=== PATIENT | female | born 1950 | race Caucasian/White ===

== ENCOUNTER 2018-01-26 00:08 | Outpatient (CLI) | payer OTHER, SELFPAY ==
--- NOTE | 2018-01-26 08:42 | DI.MAMMO_ITS ---
SYMPTOM/DIAGNOSIS: SCREENING MAMMOGRAMS: Mammograms were interpreted according to the usual protocol including computer analysis with CAD system, tomosynthesis and C view imaging. Comparison with prior examinations. Breast density B. No masses or microcalcifications are seen. There is nothing to suggest malignancy. IMPRESSION: Negative mammogram. Routine screening is recommended. Category I. MQSA ASSESSMENT OF FINDINGS: Negative. Category 1. Patient will receive a letter notifying them of these results. BI-RADS category B. There are scattered areas of fibroglandular density.
== END 2018-01-26 00:28 ==
PROVIDERS: PCP Nurse Practitioner Primary Care; Visit Provider Nurse Practitioner Primary Care
DX: Z12.31 Encounter for screening mammogram for malignant neoplasm of breast (principal)
CPT/HCPCS: 77063; 77067

== ENCOUNTER 2019-08-10 09:49 | Emergency (ER) | payer OTHER, SELFPAY ==
[2019-08-10 09:50] VITALS: BP 119/62; PULSE 68; RESP 16; TEMP 37; O2SAT 95
--- NOTE | 2019-08-10 10:00 | DI.CT_ITS ---
EXAM: CT ABDOMEN PELVIS W CLINICAL HISTORY: GI bleed, N/V/D, RUQ abd pain TECHNIQUE: CT examination of the abdomen and pelvis was performed with bolus infusion of 100 cc of O mnipaque 350. COMPARISON: No exams were available for comparison FINDINGS: Images obtained through the lung bases show a well-circumscribed pleural-based 9 millimeter right lo wer lobe intrapulmonary nodule. There is also an incompletely visualized low-attenuation mass, appro ximately 15 Hounsfield units mean attenuation, seen adjacent to the esophagus in the posterior medias tinum measuring up to about 2 cm in diameter, this is possibly cystic in nature but should be evaluat ed with chest CT to visualize the entire lesion. There is a small hiatal hernia. There may be slight gastric wall thickening but this is indeterminat e with partially filled stomach. The liver and spleen are unremarkable in appearance as is the pancreas. There has been a prior lisa cystectomy. No biliary dilatation seen. Incidental right renal cyst noted measuring 3 cm in diameter. Multiple apparent smaller renal cysts seen bilaterally as well. No urinary tract obstruction or calcification. Unremarkable appearance of the adrenal glands. Abdominal aorta is of normal diameter and major visceral vessels appear intact. No abdominal or pelv ic adenopathy. Tiny fat containing left inguinal hernia noted. No other significant abdominal wall hernia seen. Appendix appears normal. No evidence of diverticulitis or bowel obstruction. There is wall thickening of the descending and proximal sigmoid colon suggesting colitis. Please cor relate clinically. IMPRESSION: Incidental 9 millimeter noncalcified right lower lobe intrapulmonary nodule, note is also made of inc ompletely visualized low-attenuation mediastinal mass which may represent a cyst, chest CT suggested to further evaluate these findings. Findings consistent with colitis involving descending and proximal sigmoid colon, colitis of uncertai n etiology. No evidence of obstruction.
--- NOTE | 2019-08-10 10:13 | ED.GENADUL_ITS ---
Discharge Plan Disposition Patient Disposition: HOME Condition: Stable Discharge Details Chief Complaint: GI Bleed Clinical Impression: Colitis with rectal bleeding Primary Care Provider: Jhoana Amador ED Provider: Susan Arguelles Home Meds and New Rx's Prescriptions: New pantoprazole [Protonix] 40 mg tablet,delayed release (DR/EC) 40 mg PO DAILY Qty: 14 RF: 0 ondansetron HCl [Zofran] 4 mg tablet 4 mg PO Q8H PRN (Reason: nausea and vomiting) Qty: 14 RF: 0 Continued multivitamin [Daily Multi-Vitamin] 1 EACH tablet 1 ea PO DAILY RF: 0 simvastatin 10 MG tablet 10 mg PO DAILY RF: 0 atenolol [Tenormin] 50 MG tablet 50 mg PO QHS RF: 0 omega-3 fatty acids-fish oil 1 EACH capsule 1 ea PO DAILY RF: 0 calcium carbonate-vitamin D3 [Calcium 500 + D] 1 EACH tablet 1 ea PO DAILY RF: 0 Discharge Instructions Instructions: Rectal Bleeding (ED), Colitis (ED) Additional Instructions: Please follow-up with primary care regarding possible chest CT. There are some incidental findings noted on the CT including a lung nodule and mediastienum mass that need further follow-up and evaluation. Take medications as pre scribed. Follow-up with surgery to schedule an outpatient colonoscopy. Return to the ED if any worsening bleeding worsening abdominal pain, blood in your emesis, feeling lightheaded dizzy or sweaty at any time. Follow up with primary care provider in 2-3 days. Return to ED sooner if any worsening or concerns. Increase oral fluids. Referrals: Jhoana Amador [Primary Care Provider] - Lucy Mariano DO [OSTEOPATHIC DOCTOR] - (Follow-up to schedule an outpatient scope for colitis and GI bleeding.) Medical Decision Making 69-year-old female presents with nausea vomiting diarrhea which patient reports is moderate to severe, intermittent which began yesterday associated with bright red blood from the rectum. She reports crampy abdominal pain. She denies any hematemesis or coffee-ground emesis. She denies any rectal pain. Exacerbating symptoms include oral intake no relieving factors. CBC and CMP are largely within normal limits. Rectal exam does not display any external hemorrhoids, was grossly bloody stool guaiac positive. Patient has had no further episodes of emesis or diarrhea since being in department. 1150: Spoke with radiologist Dr. Doan regarding CT abdomen pelvis he reports multiple findings including thickened bowel wall consistent with colitis, hiatal hernia, and a mass in the mediastinum which is poorly seen and a possible right lower lobe nodule which he recommends chest CT which can be done non-emergently as an outpatient. CT abdomen pelvis with contrast IMPRESSION: Incidental 9 millimeter noncalcified right lower lobe intrapulmonary nodule, note is also made of incompletely visualized low-attenuation mediastinal mass which may represent a cyst, chest CT suggested to further evaluate these findings. Findings consistent with colitis involving descending and proximal sigmoid colon, colitis of uncertain etiology. No evidence of obstruction. Dr. Mariano with surgery paged to discuss patient's case and recommendations for outpatient colonoscopy. Will have patient follow-up within 24-48 hours with surgery to schedule scope. At this time I feel it is safe for patient to be discharged home vitals are stable, patient states that she feels safe to go home and verbalizes red flags and strict return instructions. Discussed incidental findings on CT including possible lung nodule and mediastinal mass which need to be followed up with her primary care provider. HPI General Mode of arrival: ambulatory . Date/Time Provider Initiated Documentation: 08/10/19 09:50 . Limitations to Documentation: no limitations . Information obtained by: patient . HPI Narrative: 69-year-old female presents with nausea vomiting diarrhea which patient reports is moderate to severe, intermittent which began yesterday associated with bright red blood from the rectum. She reports crampy abdominal pain. She denies any hematemesis or coffee-ground emesis. She denies any rectal pain. Exacerbating symptoms include oral intake no relieving factors. Related Data Home Medications Medication Instructions Recorded Confirmed atenolol [Tenormin] 50 mg PO QHS 10/15/12 08/10/19 calcium carbonate-vitamin D3 1 ea PO DAILY 10/15/12 08/10/19 [Calcium 500 + D] multivitamin [Daily Multi-Vitamin] 1 ea PO DAILY 10/15/12 08/10/19 omega-3 fatty acids-fish oil 1 ea PO DAILY 10/15/12 08/10/19 simvastatin 10 mg PO DAILY tab-cap 10/15/12 08/10/19 ondansetron HCl [Zofran] 4 mg PO Q8H PRN #14 tab 08/10/19 pantoprazole [Protonix] 40 mg PO DAILY #14 tab 08/10/19 Previous Rx's Medication Instructions Recorded ondansetron HCl [Zofran] 4 mg PO Q8H PRN #14 tab 08/10/19 pantoprazole [Protonix] 40 mg PO DAILY #14 tab 08/10/19 Allergies Allergy/AdvReac Type Severity Reaction Status Date / Time No Known Drug Allergies Allergy Unverified 08/10/19 10:00 General Stated Complaint: GI Bleed ERICK: 2 Review of Systems Narrative: Constitutional: Negative for weight loss, alert and oriented, well groomed, normal body habitus, appears comfortable. HEENT: Denies trauma, headaches, blurry vision, nasal discharge, sore throat, trouble swallowing. Chest: Denies chest pain, palpitations, irregular rhythm, hypertension. Respiratory: Denies Shortness of breath, cough, hemoptysis. GI: Denies constipation. Positive nausea vomiting and diarrhea positive hematochezia. : Denies dysuria, hematuria, flank pain, positive rectal bleeding. Neuro: Denies blurry vision, weakness, syncope, headache or facial numbness. Had an episode of dizziness yesterday. Hematologic: Denies easy bruising, intolerance to heat or cold, hair loss. All systems reviewed & are unremarkable except as noted in HPI and below PFSH Social History Smoking/Tobacco Use Status: Never Alcohol Intake: never Drug use: Never Substance use type: does not use Do you feel safe at home: Yes Do you feel safe in your relationship?: Yes Exam Narrative Exam Narrative: Constitutional: Alert and oriented x3. Appears stated age. Normal body habitus. Head: Normocephalic, no trauma. Eyes: Pupils PERRLA, Red reflex noted, EOM's intact. Eyelids symmetrical without lesions, discharge, or swelling. ENT: Bilateral TM's WNL, External ear normal to inspection, no mastoid TTP, swelling, or erythema, Nasal turbinates WNL, no nasal discharge. Normal dentition, Posterior pharynx WNL, no exudate. Chest: RRR, Normal S1, S2, distal pulses intact. Resp: Lungs clear to auscultation bilaterally, no wheezes, rales, or rhonchi. Abdomen: Hypoactive bowel sounds all 4 quadrants, soft nondistended nontender to palpation. : Rectal exam performed Carolina RN at bedside for witness. No hemorrhoids visualized, good rectal tone. Stools grossly positive for blood and guaiac positive. Musculoskeletal: Normal gait, 5/5 strength to all four extremities. Skin: No suspicious rashes or lesions. Capillary refill less than 2 sec. Neurologic: Cranial nerves II-XII intact. Alert and oriented x 3. DTR's intact. Hematologic/Lymphatic: No ecchymosis, no lymphadenopathy. Course Vital Signs Vital signs: Vital Signs Temperature 37 C 08/10/19 09:50 Pulse 68 08/10/19 09:50 Respiratory Rate 16 08/10/19 09:50 Blood Pressure 119/62 08/10/19 09:50 Pulse Oximetry 95 08/10/19 09:50 Temperature 37 C 08/10/19 09:50 Temperature Source Skin 08/10/19 09:50 Pulse 68 08/10/19 09:50 Respiratory Rate 16 08/10/19 09:50 Respiratory Effort 08/10/19 10:03 Blood Pressure 119/62 08/10/19 09:50 Blood Pressure Position Sitting 08/10/19 09:50 Pulse Oximetry 95 08/10/19 09:50 Oxygen Delivery Method Room Air 08/10/19 09:50 Oxygen Flow Rate 0 08/10/19 09:50 Pain Level 5 08/10/19 09:50 Procedures Stool Hemoccult Procedural Steps Taken: stool placed in appropriate test area, developer placed on stool and control areas and controls appropriately positive and negative Hemoccult result: positive
[2019-08-10] MEDS: Pantoprazole 40 MG VIAL IVP (10:29)
[2019-08-10] MEDS: Ondansetron 4 MG/2 ML VIAL IVP (10:29)
[2019-08-10] MEDS: Normal Saline Flush 10 ML SYR IVP (10:30)
[2019-08-10 10:35] LABS: Abs Immature Grans 0.01 k/cumm (0.0-0.09); Absolute Basophil Count 0.02 k/cumm (0.0-0.2); Absolute Eosinophil Count 0.07 k/cumm (0.0-0.7); Absolute Lymphocyte Count 1.66 k/cumm (1.2-3.4); Absolute Monocyte Count 0.49 k/cumm (0.11-0.7); Absolute Neutrophil Count 3.16 k/cumm (1.2-6.7); Basophils % 0.4; Eosinophils % 1.3; HCT 40.1 % (36.0-46.0); HGB 13.7 g/dL (12.0-15.5); Immature Grans % 0.2 %; Lymphocytes % 30.7; Mean Corp. HGB Concentration 34.2 g/dL (32.0-36.0); Mean Corpuscular Hemoglobin 30.6 pg (27.0-33.0); Mean Corpuscular Volume 89.7 fL (80-95); Mean Platelet Volume 9.4 fL (8.0-11.0); Monocytes % 9.1; Neutrophils % 58.3; Platelet Count 302 x1000/uL (130-400); RBC 4.47 m/cumm (4.00-5.20); RBC Distribution Width 12.2 % (11.7-14.6); White Blood Cell Count 5.41 k/cumm (4.4-10.8)
[2019-08-10] MEDS: Normal Saline 1,000 ML 1000 ML IV (10:39)
[2019-08-10 10:41] LABS: Prothrombin Time 10.1 sec (9.3-11.0)
[2019-08-10 10:43] LABS: ALT 27 U/L (14-59); AST 23 U/L (15-37); Alkaline Phosphatase 76 U/L (46-116); Anion Gap 9.3 mmol/L (3-11); BUN 16 mg/dL (7-18); CO2 24.7 mmol/L (21.0-32.0); CREATININE 0.92 mg/dL (0.55-1.02); Calcium 9.1 mg/dL (8.5-10.1); Chloride 104 mmol/L (98-107); Glucose 108 mg/dL (74-106); Magnesium 1.8 mg/dL (1.8-2.4); Potassium 3.9 mmol/L (3.5-5.1); Sodium 138 mmol/L (136-145); Total Protein 7.6 g/dL (6.4-8.2)
[2019-08-10 10:44] LABS: Bilirubin, Total 0.6 mg/dL (0.2-1.0)
[2019-08-10 11:15] VITALS: BP 111/56; PULSE 56; TEMP 36.7; O2SAT 99
[2019-08-10] MEDS: Omnipaque 350 MG/ML 100 ML BTL IJ (11:21)
[2019-08-10] MEDS: Normal Saline - Diluent 50 ML VIAL IV (11:22)
[2019-08-10 12:38] VITALS: BP 114/65; PULSE 70; RESP 16; TEMP 37; O2SAT 96
--- NOTE | 2019-08-10 12:44 | NUR.NOTE ---
Nursing Note: FAXED REFERRAL TO SURGERY AND PCP
[2019-08-10 13:37] LABS: C-Reactive Protein 0.66 mg/dL (0.0-0.3)
== END 2019-08-10 13:10 | disposition home or self-care (01) ==
PROVIDERS: Surgery; Emergency Provider Registered Nurse Emergency; PCP Nurse Practitioner Primary Care
DX: K51.511 Left sided colitis with rectal bleeding (principal); R91.1 Solitary pulmonary nodule; R91.8 Other nonspecific abnormal finding of lung field; R11.2 Nausea with vomiting, unspecified
CPT/HCPCS: 36415; 80053; 86850; 86900; 86901; 96361; 96374; 96375; 99285; 74177; 83735; 83993; 85025; 85610; 86140; 99284; J2405; J3490

== ENCOUNTER 2019-08-11 12:35 | Outpatient (REF) | payer OTHER, SELFPAY ==
[2019-08-12 11:58] LABS: Campylobacter PCR Negative (Negative); Salmonella PCR Negative (Negative); Shiga Toxin PCR Negative (Negative); Shigella/Enteroinvasive Ecoli Negative (Negative)
[2019-08-15 14:48] LABS: Calprotectin 252 mcg/g
== END 2019-08-11 12:55 ==
LOC: LBN 12:35
PROVIDERS: PCP Nurse Practitioner Primary Care; Referring Provider Surgery; Visit Provider Registered Nurse Emergency
DX: R19.7 Diarrhea, unspecified (principal); K92.1 Melena
CPT/HCPCS: 87505; 83630; 83993

== ENCOUNTER 2019-08-15 01:10 | Outpatient (CLI) | payer OTHER, SELFPAY ==
--- NOTE | 2019-08-15 | DI.CT_ITS ---
EXAM: CT CHEST W CLINICAL HISTORY: [id number],F/U ABNL CT SHOWING INCIDENTAL RLL LUNG NODULE ON ABD CT TECHNIQUE: Imaging Protocol: Axial computed tomography images with coronal and sagittal reformatted images were created and reviewed CONTRAST MATERIAL: Intravenous: Omnipaque 350 Contrast volume:70 mL. COMPARISON: CT CT ABDOMEN PELVIS W from 08/10/2019 FINDINGS: Tracheobronchial tree: Patent where visualized. Mediastinum and Fernanda: No dominant adenopathy or fluid collection. There is a 2.2 x 1.4 cm hypodense o void lesion in the posterior mediastinum inferiorly adjacent to the esophagus. It lies posterior and inferior to the left atrium. It appears consistent with fluid attenuation. Pulmonary parenchyma: There is scarring in the right upper lobe and left lingula. There is mild prom inence of the interstitium peripherally which may reflect chronic pulmonary fibrosis. There is a 1 c m noncalcified peripheral pleural based nodule in the right lower lobe. No other pulmonary nodules a re identified. No focal consolidating infiltrates are present. Pleura: No effusion or pneumothorax. Heart: The heart is not dilated. No coronary artery calcifications are seen. No significant pericardi al effusion. Aorta: Thoracic aorta non-dilated. Upper abdomen: Status post cholecystectomy. No biliary ductal dilatation. Lymph nodes: Within normal limits. Bones: Age appropriate degenerative changes. Chronic appearing changes in the right ribs. IMPRESSION: 1. 1 cm noncalcified pulmonary nodule in the right lower lobe. For high risk patients, months follow -up CT scan of the chest or PET-CT is recommended. 2. 2.2 x 1.4 cm ovoid, hypodense lesion in the posterior mediastinum. This may represent a benign le hitesh such as a cyst. A follow-up CT scan considered for re-evaluation and to document stability. PE T scan may also be considered for further evaluation. RADIATION DOSE DELIVERED: Total DLP DATA REPOSITORY: All CT scans at this facility are submitted to the National Radiology Data Registry (NRDR) Dose Index Registry (DIR) with the [employer] (ACR). RADIATION OPTIMIZATION: All CT scans at this facility use at least one of these dose optimization te chniques: automated exposure control; mA and/or kV adjustment per patient size (includes targeted exa ms where dose is matched to clinical indication); or iterative reconstruction.
[2019-08-15] MEDS: Omnipaque 350 MG/ML 100 ML BTL IV (08:59)
[2019-08-15] MEDS: Normal Saline - Diluent 50 ML VIAL IV (09:00)
== END 2019-08-15 01:30 ==
PROVIDERS: PCP Nurse Practitioner Primary Care; Visit Provider Nurse Practitioner Primary Care
DX: R91.1 Solitary pulmonary nodule (principal); J98.4 Other disorders of lung; J98.59 Other diseases of mediastinum, not elsewhere classified
CPT/HCPCS: 71260; J3490

== ENCOUNTER 2019-11-24 02:25 | Outpatient (CLI) | payer OTHER, SELFPAY ==
--- NOTE | 2019-11-24 | DI.MAMMO_ITS ---
EXAM: MAMMO SCREENING CLINICAL HISTORY: SCREENING,Z12.39,[id number] TECHNIQUE: Mammograms were interpreted according to the usual protocol including computer analysis w [employer] system, tomosynthesis and C-view imaging. COMPARISON: FINDINGS: The breasts are of moderate density with fairly symmetrical distribution of fibroglandular tissue. N o dominant mass or clumped microcalcification is identified in either breast. The current examinatio n is compared with previous examinations including December 2017 and there has been no gross interval change in appearance in comparison with prior studies. IMPRESSION: No specific evidence of malignancy at this time. Routine screening examinations are suggested at yea rly intervals in this age group according to the ACS ACR guidelines. BI-RADS Cat 1 - Negative Breast Density - Category B - Scattered areas of fibroglandular density
== END 2019-11-24 02:45 ==
PROVIDERS: PCP Nurse Practitioner Primary Care; Visit Provider Nurse Practitioner Primary Care
DX: Z12.31 Encounter for screening mammogram for malignant neoplasm of breast (principal)
CPT/HCPCS: 77063; 77067

== ENCOUNTER 2020-02-10 10:11 | Outpatient (CLI) | payer OTHER, SELFPAY ==
[2020-02-14 20:58] LABS: Patient Race White; SARS-CoV-2 RNA Undetected (Undetected); SARS-CoV-2 Specimen Source Nasal
== END 2020-02-10 10:31 ==
PROVIDERS: PCP Nurse Practitioner Primary Care; Visit Provider Nurse Practitioner Primary Care
DX: Z20.828 Contact with and (suspected) exposure to other viral communicable diseases (principal)
CPT/HCPCS: U0003

== ENCOUNTER 2020-07-30 14:51 | Emergency (ER) | payer OTHER, SELFPAY ==
[2020-07-30 15:06] VITALS: BP 128/67; PULSE 70; RESP 20; TEMP 36.6; O2SAT 95
--- NOTE | 2020-07-30 15:15 | DI.CT_ITS ---
Exam(s) CT HEAD WO EXAM: CT HEAD WO CLINICAL HISTORY: fall, [place], increased pressure , +LOC on 07/23. TECHNIQUE: Imaging Protocol: Axial computed tomography images with coronal and sagittal reformatted images were created and reviewed COMPARISON: No exams were available for comparison FINDINGS: Ventricles and Extra axial spaces: Normal in size and morphology for the patient's age. Hemorrhage: None. Cerebral parenchyma: No acute territorial infarct. Midline shift: None. Brainstem/Cerebellum: Normal. Calvarium: Normal. Visualized Paranasal sinuses/Mastoids: Clear. Soft Tissues: Unremarkable. IMPRESSION: 1. No acute intracranial process. 2. Results of this exam have been verbally communicated with provider. RADIATION DOSE DELIVERED: 733.35mGy.cm Total DLP DATA REPOSITORY: All CT scans at this facility are submitted to the National Radiology Data Registry (NRDR) Dose Index Registry (DIR) with the [employer] (ACR). RADIATION OPTIMIZATION: All CT scans at this facility use at least one of these dose optimization te chniques: automated exposure control; mA and/or kV adjustment per patient size (includes targeted exa ms where dose is matched to clinical indication); or iterative reconstruction.
--- NOTE | 2020-07-30 15:51 | ED.GENADUL_ITS ---
Discharge Plan Disposition Patient Disposition: HOME Condition: Good Discharge Details Clinical Impression: Head injury Primary Care Provider: Jhoana Amador ED Provider: Tara Darnell Home Meds and New Rx's Prescriptions: No Action multivitamin [Daily Multi-Vitamin] 1 EACH tablet 1 ea PO DAILY RF: 0 simvastatin 10 MG tablet 10 mg PO DAILY RF: 0 atenolol [Tenormin] 50 MG tablet 50 mg PO QHS RF: 0 omega-3 fatty acids-fish oil 1 EACH capsule 1 ea PO DAILY RF: 0 calcium carbonate-vitamin D3 [Calcium 500 + D] 1 EACH tablet 1 ea PO DAILY RF: 0 pantoprazole [Protonix] 40 mg tablet,delayed release (DR/EC) 40 mg PO DAILY Qty: 14 RF: 0 ondansetron HCl [Zofran] 4 mg tablet 4 mg PO Q8H PRN (Reason: nausea and vomiting) Qty: 14 RF: 0 Discharge Instructions Instructions: Concussion (ED), Head Injury (ED) Additional Instructions: Take Tylenol as needed for pain Follow-up with your primary care physician in 1 to 2 days for reevaluation I recommend decreasing activities where he may harm yourself, no climbing ladders, no riding her bike, low impact activities Should you have new or worsening complaints, please return to the emergency room Discharge Data Discharge Date/Time-TO BE ENTERED AT DEPARTURE: 07/30/20 16:20 Medical Decision Making No evidence of skull fracture, small abrasion noted to forehead, CT does not show evidence of subarachnoid hemorrhage or subdural hematoma, discussed likely concussion signs and symptoms and patient instructed to follow-up with primary care physician Ibuprofen and Tylenol for pain control Ambulatory with steady gait, alert and oriented throughout evaluation Recheck with primary care physician this week and return precautions discussed and patient states understanding Differential Diagnosis Differential Diagnosis: Subdural hematoma, subarachnoid hemorrhage, concussion, fx Medical Records Medical records reviewed: Yes I reviewed the patient's medical records. HPI General Mode of arrival: ambulatory . Date/Time Provider Initiated Documentation: 07/30/20 15:12 . Limitations to Documentation: no limitations . Information obtained by: patient . HPI Narrative: This 70-year-old female presents status post head injury. Patient states that she tripped on the 26, falling forward and hitting the left side of her head. She states since that time she has some pressure when she bends over or when she bends over she feels pressure and some slight pain. She denies any nausea or vomiting. She denies any vision change or neck pain. She denies any chest pain or shortness of breath. She denies any numbness or tingling. She denies history of coagulopathy. She denies any photophobia or phonophobia. She otherwise feels well today and actually drove to the emergency room. She denies any neck pain. Related Data Home Medications Medication Instructions Recorded Confirmed atenolol [Tenormin] 50 mg PO QHS 10/15/12 08/19/19 calcium carbonate-vitamin D3 1 ea PO DAILY 10/15/12 08/19/19 [Calcium 500 + D] multivitamin [Daily Multi-Vitamin] 1 ea PO DAILY 10/15/12 08/19/19 omega-3 fatty acids-fish oil 1 ea PO DAILY 10/15/12 08/19/19 simvastatin 10 mg PO DAILY tab-cap 10/15/12 08/19/19 ondansetron HCl [Zofran] 4 mg PO Q8H PRN #14 tab 08/10/19 08/19/19 pantoprazole [Protonix] 40 mg PO DAILY #14 tab 08/10/19 08/19/19 Previous Rx's Medication Instructions Recorded ondansetron HCl [Zofran] 4 mg PO Q8H PRN #14 tab 08/10/19 pantoprazole [Protonix] 40 mg PO DAILY #14 tab 08/10/19 Allergies Allergy/AdvReac Type Severity Reaction Status Date / Time No Known Drug Allergies Allergy Unverified 07/30/20 15:10 General Stated Complaint: HeadInjury ERICK: 3 Review of Systems Narrative: Review of systems negative x7 aside from where indicated in HPI [facility] Medical History (Updated 07/30/20 @ 15:53 by RAUL Betancourt) Adenomatous colon polyp Nausea Pulmonary nodule not amendable to Bx PET recommeneded. Social History Smoking/Tobacco Use Status: Never Smoking risk assessment performed?: Yes Alcohol Intake: never Drug use: Never Substance use type: does not use Current gender identity: female Do you feel safe at home: Yes Do you feel safe in your relationship?: Yes Exam Const General: cooperative, healthy appearing and no acute distress Eyes Pupils: PERRL EOM: EOM intact bilaterally Neck Other: No carotid bruit, no midline tenderness Resp Effort & Inspection: normal respiratory effort Auscultation: clear to auscultation bilaterally Cardio Rate: regular rate Rhythm: regular rhythm GI Other: Nontender abdominal evaluation Skin Other: Small abrasion noted on forehead, no crepitus, only mild tenderness no hemotympanum Neuro General: patient alert and patient oriented x3 Cranial Nerves: CN's II-XI intact bilaterally and PERRL Speech: speech normal Gait: normal gait Motor: strength 5/5 throughout Sensory Exam: no sensory deficits noted Course Vital Signs Vital signs: Vital Signs Temperature 36.6 C 07/30/20 15:06 Pulse 70 07/30/20 15:06 Respiratory Rate 20 07/30/20 15:06 Blood Pressure 128/67 07/30/20 15:06 Pulse Oximetry 95 07/30/20 15:06 Temperature 36.6 C 07/30/20 15:06 Temperature Source Skin 07/30/20 15:06 Pulse 70 07/30/20 15:06 Respiratory Rate 20 07/30/20 15:06 Blood Pressure 128/67 07/30/20 15:06 Blood Pressure Position Sitting 07/30/20 15:06 Pulse Oximetry 95 07/30/20 15:06 Oxygen Delivery Method Room Air 07/30/20 15:06 Oxygen Flow Rate 0 07/30/20 15:06 Pain Level 8 07/30/20 15:06
== END 2020-07-30 16:20 | disposition home or self-care (01) ==
LOC: ER 15:59
PROVIDERS: Emergency Provider Physician Assistant; PCP Nurse Practitioner Primary Care
DX: S09.8XXA Other specified injuries of head, initial encounter (principal); W01.198A Fall on same level from slipping, tripping and stumbling with subsequent striking against other object, initial encounter
CPT/HCPCS: 99284; 70450; 99283

== ENCOUNTER 2021-02-28 14:43 | Emergency (ER) | payer OTHER, SELFPAY ==
[2021-02-28] VITALS (26 sets, daily range): BP systolic 117–136; BP diastolic 61–81; PULSE 69–80; RESP 14–73; TEMP 35.5; O2SAT 93–99
--- NOTE | 2021-02-28 14:45 | RT.EKG_ITS ---
APPROVED REPORT Exam: Resting ECG Reason for Exam: chest pain Patient Location: E HR:73 bpm ECG Measurements Heart Rate 73 AXIS MA 181 P 10 QRSd 104 QRS -50 QT 398 T 48 QTc 440 Conclusion Sinus rhythm...normal P axis, V-rate 60- 99 Incomplete RBBB and LAFB...axis(240,-40), S>R II III aVF. Sinus. Incomplete RBBB. No STEMI. I have reviewed and interpreted ECG and agree with software generated interpretation.
--- NOTE | 2021-02-28 14:58 | ED.GENADUL_ITS ---
Discharge Plan Disposition Patient Disposition: HOME Condition: Improving Discharge Details Clinical Impression: Left-sided chest wall pain Primary Care Provider: Jhoana Amador ED Provider: Helga Meredith Home Meds and New Rx's Prescriptions: Continued multivitamin [Daily Multi-Vitamin] 1 EACH tablet 1 ea PO DAILY RF: 0 simvastatin 10 MG tablet 20 mg PO DAILY RF: 0 calcium carbonate-vitamin D3 [Calcium 500 + D] 1 EACH tablet 1 ea PO DAILY RF: 0 propranolol 10 mg tablet 10 mg PO TID RF: 0 Discharge Instructions Instructions: Chest Wall Pain (ED) Additional Instructions: Drink plenty of fluids and get plenty of rest. Alternate tylenol and motrin as needed and directed for pain. Take the Valium that you were given for home every 8 hours as needed and directed for muscle spasm. You can try [id number] lidocaine patches as needed and directed for pain. Follow-up with your primary care doctor in 1 week for reevaluation and for refer ral for outpatient stress test if your chest pain persists or worsens. Also plan to discuss the additional findings on your CT scan today for referral for outpatient thyroid ultrasound and for repeat CT imaging of the stable findings noted in your lung and heart on CT imaging today. Return to the emergency department with any worsening or new concerning symptoms. Discharge Data Discharge Date/Time-TO BE ENTERED AT DEPARTURE: 02/28/21 19:25 Discharge Physician: Helga Meredith Medical Decision Making 71-year-old female with a history of hyperlipidemia presents for left-sided chest pain that occurs mainly with movement, deep breaths and to touch. EKG notes a rate of 73, sinus, no STEMI nondiagnostic. Her vitals are within normal limits and she appears comfortable and not. She had a normal respiratory rate. Her left medial chest wall including the area under her left breast is tender to palpation. There is no evidence of trauma, cellulitis or rash. Due to the reproducible nature, appears most likely consistent with chest wall/musculoskeletal pain. Considering her age, will obtain screening labs, CT chest with PE. History and presentation does not appear consistent with dissection. Labs and imaging reviewed and unremarkable for acute findings. No evidence of PE. There is a stable right lower lobe lung nodule and left atrium hypodensity seen in previous imaging and unchanged. There is also a potential right thyroid lobe hypodensity versus artifact. Repeat troponin negative. Repeat EKG unchanged. Patient reassessed and she is pain-free and feels comfortable going home. Heart score 3 which is low risk. Advised to follow-up with her PCP for reevaluation and referral for outpatient stress test and repeat CT imaging of stable pulmonary and cardiac CT findings and for outpatient thyroid ultrasound for further evaluation of above-mentioned CT findings. She was given a few tabs of valium to go per her request. Usual and customary return precautions given prior to discharge. Medical Records Medical records reviewed: Yes I reviewed the patient's medical records. Imaging Data Radiologic Study: Radiologist's impression: CTA Chest With Contrast Exam date and time: 02/28/2021 3:22 PM Age: 71 years old Clinical indication: Other: L sided chest pain, R/O pe TECHNIQUE: Imaging protocol: Computed tomographic angiography of the chest with contrast. 3D rendering (Not supervised by radiologist): MIP and/or 3D reconstructed images were created by the technologist. Contrast material: OMNIPAQUE 350; Contrast volume: 100 ml; Contrast route: INTRAVENOUS (IV); COMPARISON: CT CHEST W 08/15/2019 8:19 AM FINDINGS: Pulmonary arteries: Hounsfield attenuation of the right pulmonary artery measures 430 and therefore this study is diagnostic. No pulmonary emboli seen. Aorta: Unremarkable. Lungs: Mild heterogeneity is seen within the right upper lobe parenchyma, series 11 image 192 which may be artifactual. There is a subpleural 10 mm nodule within the posterior right lower lobe, series 4, image 45 previously measuring 10 mm. Stable scarring is seen within the right upper lobe and lingula. Bibasilar dependent atelectasis noted. Pleural spaces: No pleural effusion or pneumothorax. Mediastinum: There is a 10 mm hypodensity within the right thyroid lobe versus artifact from adjacent contrast-enhanced vessel. Heart size is upper limits of normal to minimally enlarged. No pericardial effusion or thickening. Esophagus is unremarkable. Again seen is a 19 x 16 mm hypodensity with Hounsfield attenuation of 30 adjacent to the left atrium, series 4, image 38. Lymph nodes: No mediastinal lymphadenopathy. Superior abdomen: Visualized portion of the liver, adrenal glands, kidneys, spleen, pancreas, moderately distended stomach with enteric content and bowel are unremarkable in appearance. No definite abdominal free air, significant free fluid or lymphadenopathy seen. Bones/joints: No acute osseous injury or underlying osseous mass. There is an old right 5th rib fracture. Soft tissues: Unremarkable. IMPRESSION: 1. No pulmonary emboli. 2. Stable subpleural 10 mm nodule within the right lower lobe which has shown stability since 08/10/2019 study. Recommend PET-CT or biopsy. 3. 10 mm right thyroid lobe hypodensity versus artifact. Recommend dedicated ultrasound. 4. Stable in size 19 x 16 mm hypodensity adjacent to the left atrium which is been stable since 08/10/2019 with Hounsfield attenuation consistent with simple fluid prior 2 studies. Current Hounsfield attenuation of 30 may represent minimally hemorrhagic/proteinaceous fluid. Recommend follow-up CT imaging in 3 months to include both with and without contrast. Lab Data Lab results reviewed: Yes I reviewed the patient's lab results. Labs: Laboratory Tests Range/Units 02/28/21 02/28/21 02/28/21 14:53 14:53 18:00 WBC (4.4-10.8) 10^3/uL 4.71 RBC (3.93-5.22) 10^6/uL 4.42 Hgb (11.2-15.7) g/dL 13.6 Hct (36.0-46.0) % 40.2 MCV (80-95) fL 91.0 MCH (27.0-33.0) pg 30.8 MCHC (32.0-36.0) % 33.8 RDW (11.7-14.6) % 11.9 Plt Count (130-400) 10^3/uL 254 MPV (8.0-11.0) fL 8.9 Immature Gran % 0.6 Neutrophils % 44.4 Lymphocytes % 39.7 Monocytes % 11.3 Eosinophils % 3.2 Basophils % 0.8 Nucleated RBC % % 0 Absolute Neutrophils (1.2-6.7) 10^3/uL 2.09 Absolute Lymphocytes (1.2-3.4) 10^3/uL 1.87 Absolute Monocytes (0.1-0.8) 10^3/uL 0.53 Absolute Eosinophils (0.0-0.7) 10^3/uL 0.15 Absolute Basophils (0.0-0.2) 10^3/uL 0.04 Sodium (136-145) mmol/L 140 Potassium (3.5-5.1) mmol/L 4.0 Chloride (98-107) mmol/L 104 Carbon Dioxide (21.0-32.0) mmol/L 29.0 Anion Gap (3-11) mmol/L 7.0 BUN (7-18) mg/dL 20 H Creatinine (0.55-1.02) mg/dL 0.9 Estimated GFR/1.73 m2 (mL/min/1.73m2) >= 60.00 Glucose (74-106) mg/dL 106 Calcium (8.5-10.1) mg/dL 9.3 Magnesium (1.8-2.4) mg/dL 2.2 Total Bilirubin (0.2-1.0) mg/dL 0.3 AST (15-37) U/L 21 ALT (14-59) U/L 30 Alkaline Phosphatase (46-116) U/L 68 Troponin I (<0.06) ng/mL < 0.05 < 0.05 Total Protein (6.4-8.2) g/dL 7.6 Albumin (3.4-5.0) g/dL 3.9 ECG Data Attestation: I personally reviewed and interpreted this ECG (s) as follows: Interpretation: #1 --Rate of 73, sinus, incomplete right bundle branch block and left anterior fascicular block. No STEMI. OR 181. QRS 103. QTc 440. #2 --Rate of 68, sinus, incomplete right bundle branch block and left anterior fascicular block. No STEMI. OR 184. QRS 104. QTc 443. HPI General Date/Time Provider Initiated Documentation: 02/28/21 14:50 . Limitations to Documentation: no limitations . Information obtained by: patient . HPI Narrative: Patient is a 71-year-old female who presents with left-sided chest pain that started yesterday. Patient states the pain is sharp and tight and located on her left medial chest and under her left breast. Patient states she awoke with the pain and states it is worse with movement, deep breath and to touch. She states the pain is currently 8/10. She denies any known injury. She has not taken any medication for pain. She denies fever, cough, nausea, vomiting, dizziness or shortness of breath. Related Data Home Medications Medication Instructions Recorded Confirmed calcium carbonate-vitamin D3 1 ea PO DAILY 10/15/12 02/28/21 [Calcium 500 + D] multivitamin [Daily Multi-Vitamin] 1 ea PO DAILY 10/15/12 02/28/21 simvastatin 20 mg PO DAILY tab-cap 10/15/12 02/28/21 propranolol 10 mg PO TID 02/28/21 02/28/21 Allergies Allergy/AdvReac Type Severity Reaction Status Date / Time No Known Drug Allergies Allergy Unverified 02/28/21 14:53 General Stated Complaint: Chest Pain ERICK: 2 Review of Systems All systems reviewed & are unremarkable except as noted in HPI and below Constitutional Constitutional: Reports as per HPI, Denies chills and Denies fever(s) Eyes Eyes: Denies blurry vision ENT Ears, Nose, Mouth, and Throat: Denies dizziness, Denies sore throat and Denies throat swelling Cardiovascular Cardiovascular: Reports chest pain and Denies dyspnea Respiratory Respiratory: Denies cough and Denies dyspnea Gastrointestinal Gastrointestinal: Denies abdominal pain, Denies diarrhea and Denies vomiting Genitourinary Genitourinary: Denies hematuria and Denies dysuria Musculoskeletal Musculoskeletal: Denies back pain and Denies numbness Integumentary/Breasts Skin/Breast: Denies lesions and Denies rash Neurologic Neurologic: Denies dizziness, Denies localized weakness and Denies numbness Allergic/Immunologic Allergic/Immunologic: Denies throat swelling [facility] Active Problem List (Updated 02/28/21 @ 19:12 by Helga Meredith DO) Left-sided chest wall pain (Acute) Head injury (Acute) Adenomatous colon polyp (Acute) Pulmonary nodule (Acute) Medical History (Updated 02/28/21 @ 19:12 by Helga Meredith DO) Hx of hyperlipidemia Nausea Surgical History (Updated 02/28/21 @ 19:12 by Helga Meredith DO) History of carpal tunnel release Right side History of hysterectomy History of knee surgery bilateral Social History Smoking/Tobacco Use Status: Never Smoking risk assessment performed?: Yes Alcohol Intake: never Drug use: Never Substance use type: does not use Current gender identity: female Do you feel safe at home: Yes Do you feel safe in your relationship?: Yes Exam Const General: cooperative, healthy appearing and no acute distress HENMT Head: normal to inspection Face and sinus: normal facial exam Eyes General: appearance normal, both eyes and all related structures EOM: EOM intact bilaterally Neck Neck: normal visual inspection and No submandibular swelling Lymphatic: no lymphadenopathy noted Chest Chest: normal inspection of the chest and no tenderness Chest/axillae images: 1. Localized area of tenderness to the left medial chest extending superiorly and under left breast. There is no erythema, edema, rash, lesions or open wounds. Resp Effort & Inspection: normal respiratory effort and able to speak in complete sentences Auscultation: clear to auscultation bilaterally Cardio Rate: regular rate Rhythm: regular rhythm GI Inspection: normal to inspection Palpation: soft, not firm, not rigid and nontender Auscultation: normal bowel sounds Back/Spine/Pelvis Thoracic/Lumbar Spine: thoracic and lumbar spine normal to inspection Pelvis: no pain with anterior-posterior compression Skin General skin exam: no rashes or lesions noted Neuro General: patient alert, patient awake and patient oriented x3 Cognition: normal cognition Speech: speech normal Motor: muscle tone normal throughout Sensory Exam: no sensory deficits noted Extrem General: normal to inspection, full ROM, capillary refill normal, no calf tenderness bilaterally and no edema Psych Appearance: grossly normal Mental Status: mental status grossly normal Speech and Movement: speech and movement normal Affect: normal affect Course Vital Signs Vital signs: Vital Signs Temperature 96 F L 02/28/21 14:49 Pulse 73 02/28/21 14:49 Respiratory Rate 73 H 02/28/21 14:49 Blood Pressure 136/69 02/28/21 14:49 Pulse Oximetry 95 02/28/21 14:49 Temperature 96 F L 02/28/21 14:49 Temperature Source Skin 02/28/21 14:49 Pulse 73 02/28/21 14:49 Respiratory Rate 73 H 02/28/21 14:49 Respiratory Effort Non-Labored 02/28/21 14:49 Blood Pressure 136/69 02/28/21 14:49 Blood Pressure Position Supine 02/28/21 14:49 Pulse Oximetry 95 02/28/21 14:49 Oxygen Delivery Method Room Air 02/28/21 14:49 Oxygen Flow Rate 0 02/28/21 14:49 Pain Level 0 02/28/21 14:49
[2021-02-28 15:10] LABS: Abs Immature Grans 0.03 10^3/uL (0.0-0.06); Absolute Basophil Count 0.04 10^3/uL (0.0-0.2); Absolute Eosinophil Count 0.15 10^3/uL (0.0-0.7); Absolute Lymphocyte Count 1.87 10^3/uL (1.2-3.4); Absolute Monocyte Count 0.53 10^3/uL (0.1-0.8); Absolute Neutrophil Count 2.09 10^3/uL (1.2-6.7); Basophils % 0.8; Eosinophils % 3.2; HCT 40.2 % (36.0-46.0); HGB 13.6 g/dL (11.2-15.7); Immature Grans % 0.6; Lymphocytes % 39.7; MCH 30.8 pg (27.0-33.0); MCHC 33.8 % (32.0-36.0); MPV 8.9 fL (8.0-11.0); Monocytes % 11.3; Neutrophils % 44.4; Nucleated RBC 0 %; Platelet Count 254 10^3/uL (130-400); RBC 4.42 10^6/uL (3.93-5.22); RDW 11.9 % (11.7-14.6); RDW-SD 39.8 fL; WBC 4.71 10^3/uL (4.4-10.8)
--- NOTE | 2021-02-28 15:15 | RT.EKG_ITS ---
APPROVED REPORT Exam: Resting ECG Reason for Exam: chest pain Patient Location: E HR:68 bpm ECG Measurements Heart Rate 68 AXIS PA 184 P -3 QRSd 104 QRS -46 QT 417 T 36 QTc 443 Conclusion Sinus rhythm...normal P axis, V-rate 60- 99 Incomplete RBBB and LAFB...axis(240,-40), S>R II III aVF. Sinus. No STEMI. I have reviewed and interpreted ECG and agree with software generated interpretation.
--- NOTE | 2021-02-28 15:15 | DI.CT_ITS ---
Exam(s) CT CHEST PE CTA EXAM: CT CHEST PE CTA CLINICAL HISTORY: L sided chest pain, r/o PE. TECHNIQUE: Imaging Protocol: CT angiography of the chest was performed using pulmonary embolus carlotta col. Multi planar reconstructions were performed. CONTRAST MATERIAL: Intravenous: Omnipaque 350 Contrast volume: 100 cc COMPARISON: CT CT CHEST W from 08/15/2019 FINDINGS: CHEST: PULMONARY ARTERIES: There are no intraluminal filling defects to suggest acute pulmonary emboli. LUNGS: There is a pleural base 9 x 7 millimeter nodule in the lateral basal segment of the right lowe r lobe, unchanged. There is some infiltrate evident in the posterior basal segments of both lower lo bes, not associated with pleural effusions. No additional pulmonary nodules noted. There are no sig nificant focal findings in the trachea and mainstem bronchi. Atelectasis in the lingular segment is again noted. No new focal findings in the trachea and mainstem bronchi.. There are no pleural effus ions. MEDIASTINUM: There is no hilar nor mediastinal adenopathy. There is a nodule in the right thyroid lob e again noted. CARDIAC: Heart size is upper normal. There is no pericardial effusion.Caliber of the thoracic aorta is within normal limits. There is no significant shift of the interventricular septum. PARTIALLY VISUALIZED UPPERMOST ABDOMEN: No obvious findings OSSEOUS: No significant osseous lesions.. IMPRESSION: 1. No evidence of acute pulmonary emboli. No evidence of pulmonary infarction.No pleural effusions. 2. Unchanged 1 cm noncalcified nodule in the right lower lobe lateral basal segment, unchanged from t he prior CT scan of 08/15/2019. 3. Some infiltrate noted in the posterior basal segment both lower lobes. Recommend Covid testing. No associated pleural effusions nor intrathoracic adenopathy. RADIATION DOSE DELIVERED: 544mGy.cm Total DLP DATA REPOSITORY: All CT scans at this facility are submitted to the National Radiology Data Registry (NRDR) Dose Index Registry (DIR) with the [employer] (A[employer]). RADIATION OPTIMIZATION: All CT scans at this facility use at least one of these dose optimization te chniques: automated exposure control; mA and/or kV adjustment per patient size (includes targeted exa ms where dose is matched to clinical indication); or iterative reconstruction.
[2021-02-28] MEDS: diazePAM 5 MG TAB PO (15:28)
[2021-02-28] MEDS: Ketorolac 30 MG/ML VIAL IVP (15:28)
[2021-02-28] MEDS: Lidocaine 5% Patch 1 PATCH TP (15:29)
[2021-02-28 15:30] LABS: ALT 30 U/L (14-59); AST 21 U/L (15-37); Albumin 3.9 g/dL (3.4-5.0); Alkaline Phosphatase 68 U/L (46-116); BUN 20 mg/dL (7-18); Bilirubin, Total 0.3 mg/dL (0.2-1.0); CREATININE 0.9 mg/dL (0.55-1.02); Calcium 9.3 mg/dL (8.5-10.1); Chloride 104 mmol/L (98-107); Glucose 106 mg/dL (74-106); Magnesium 2.2 mg/dL (1.8-2.4); Sodium 140 mmol/L (136-145); Total Protein 7.6 g/dL (6.4-8.2)
[2021-02-28] MEDS: Normal Saline 1,000 ML 1000 ML IV (15:33)
[2021-02-28 15:37] LABS: Troponin I < 0.05 ng/mL (<0.06)
[2021-02-28] MEDS: Omnipaque 350 MG/ML 100 ML BTL IJ (16:07)
[2021-02-28] MEDS: Normal Saline Flush 10 ML SYR IVP (16:08)
--- NOTE | 2021-02-28 17:19 | NUR.NOTE ---
Pt states she takes propranolol at 5:00 pm daily and wants to take her own med now--OK per Dr Meredith. Nursing Note:
--- NOTE | 2021-02-28 17:21 | DI.VRAD_ITS ---
PROCEDURE INFORMATION: Exam: CTA Chest With Contrast Exam date and time: 02/28/2021 3:22 PM Age: 71 years old Clinical indication: Other: L sided chest pain, R/O pe TECHNIQUE: Imaging protocol: Computed tomographic angiography of the chest with contrast. 3D rendering (Not supervised by radiologist): MIP and/or 3D reconstructed images were created by the technologist. Contrast material: OMNIPAQUE 350; Contrast volume: 100 ml; Contrast route: INTRAVENOUS (IV); COMPARISON: CT CHEST W 08/15/2019 8:19 AM FINDINGS: Pulmonary arteries: Hounsfield attenuation of the right pulmonary artery measures 430 and therefore this study is diagnostic. No pulmonary emboli seen. Aorta: Unremarkable. Lungs: Mild heterogeneity is seen within the right upper lobe parenchyma, series 11 image 192 which may be artifactual. There is a subpleural 10 mm nodule within the posterior right lower lobe, series 4, image 45 previously measuring 10 mm. Stable scarring is seen within the right upper lobe and lingula. Bibasilar dependent atelectasis noted. Pleural spaces: No pleural effusion or pneumothorax. Mediastinum: There is a 10 mm hypodensity within the right thyroid lobe versus artifact from adjacent contrast-enhanced vessel. Heart size is upper limits of normal to minimally enlarged. No pericardial effusion or thickening. Esophagus is unremarkable. Again seen is a 19 x 16 mm hypodensity with Hounsfield attenuation of 30 adjacent to the left atrium, series 4, image 38. Lymph nodes: No mediastinal lymphadenopathy. Superior abdomen: Visualized portion of the liver, adrenal glands, kidneys, spleen, pancreas, moderately distended stomach with enteric content and bowel are unremarkable in appearance. No definite abdominal free air, significant free fluid or lymphadenopathy seen. Bones/joints: No acute osseous injury or underlying osseous mass. There is an old right 5th rib fracture. Soft tissues: Unremarkable. IMPRESSION: 1. No pulmonary emboli. 2. Stable subpleural 10 mm nodule within the right lower lobe which has shown stability since 08/10/2019 study. Recommend PET-CT or biopsy. 3. 10 mm right thyroid lobe hypodensity versus artifact. Recommend dedicated ultrasound. 4. Stable in size 19 x 16 mm hypodensity adjacent to the left atrium which is been stable since 08/10/2019 with Hounsfield attenuation consistent with simple fluid prior 2 studies. Current Hounsfield attenuation of 30 may represent minimally hemorrhagic/proteinaceous fluid. Recommend follow-up CT imaging in 3 months to include both with and without contrast. Dictated and Authenticated by: Yaakov Quinones MD. Ordering:MOSES Partida MD
[2021-02-28 18:56] LABS: Troponin I < 0.05 ng/mL (<0.06)
[2021-02-28] MEDS: diazePAM 5 MG TAB 15 MG PO (19:25)
[2021-03-02 16:51] LABS: COVID-19 RT-PCR UVMMC Result Negative (Negative)
--- NOTE | 2021-03-03 12:30 | NUR.NOTE ---
called patient with covid negative results
== END 2021-02-28 19:25 | disposition home or self-care (01) ==
PROVIDERS: Emergency Provider Physician Assistant; PCP Nurse Practitioner Primary Care
DX: R07.89 Other chest pain (principal); Z20.822 Contact with and (suspected) exposure to COVID-19
CPT/HCPCS: 36415; 71275; 80053; 93005; 99285; U0003; 83735; 84484; 85025; 93010; 99284; J1885; J3490

== ENCOUNTER 2021-09-17 01:06 | Outpatient (CLI) | payer OTHER, MEDICARE, SELFPAY ==
[2021-09-17] MEDS: Albuterol HFA 18 GM 200 PUFF INH IH (09:21)
[2021-09-17] MEDS: Inhaler, Assist Device 1 EACH MC (09:22)
--- NOTE | 2021-09-20 16:49 | W.PFT ---
Date of service: 09/17/21 Time of Service: 08:01 Pulmonary Function Test Result Requesting Provider Jhoana Ricci Indications: HOOKS Interpretation Spirometry: There is no airflow limitation. There is no significant bronchodilator response. Lung Volumes: Normal lung volumes Diffusion Capacity: Diffusion is normal Airway Pressure: Normal airways resistance Impression Normal pulmonary function testing Clinical Correlation therefore is recommended.
== END 2021-09-17 01:07 | disposition home or self-care (01) ==
LOC: RT 01:07
PROVIDERS: PCP Nurse Practitioner Primary Care; Visit Provider Internal Medicine
DX: R06.09 Other forms of dyspnea (principal); R06.2 Wheezing
CPT/HCPCS: 94060; 94726; 94729

== ENCOUNTER 2022-01-05 09:57 | Emergency (ER) | payer OTHER, SELFPAY ==
[2022-01-05 10:12] VITALS: BP 96/68; PULSE 85; RESP 18; TEMP 36.7; O2SAT 96
--- NOTE | 2022-01-05 11:43 | ED.GENADUL_ITS ---
Discharge Plan Disposition Patient Disposition: HOME Condition: Stable Discharge Details Clinical Impression: COVID-19, Chest wall contusion Primary Care Provider: Jhoana Amador ED Provider: Tara Darnell Home Meds and New Rx's Prescriptions: New Paxlovid (EUA) 300 mg (150 mg x 2)-100 mg tablets,dose pack See Rx Instructions .ROUTE .COMPLEX Qty: 30 0RF Rx Instructions: take TWO 150 mg tablets of nirmatrelvir with ONE 100 mg tablet of ritonavir twice daily for 5 days hydrocodone-acetaminophen 5-325 mg tablet 1 tab PO DAILY PRNQty: 5 0RF Continued simvastatin 10 MG tablet 20 mg PO DAILY Discharge Instructions Instructions: Contusion in Adults (ED), Viral Syndrome (ED) Additional Instructions: Stop taking your simvastatin while you are taking the Paxlovid Ibuprofen and Tylenol as needed for pain Continue to take deep breaths in and completely you do not develop pneumonia Referrals: Jhoana Amador [Primary Care Provider] - Discharge Data Discharge Date/Time-TO BE ENTERED AT DEPARTURE: 01/05/22 14:12 Medical Decision Making Chest x-ray does not show evidence of acute abnormality or obvious displaced ribs, no hypoxia, secondary to age, past limits was ordered for COVID Patient is encouraged to continue to take a full inhalation and exhalation to prevent pneumonia as she has chest wall contusion She is given a small amount of opiate analgesia with risk of addiction reviewed for pain as needed for cough Discharged home in stable condition with stable vitals, will isolate for 5 days in her home and then continue to wear a mask for 5 days Medical Records Medical records reviewed: Yes I reviewed the patient's medical records. Lab Data Lab results reviewed: Yes I reviewed the patient's lab results. HPI General Date/Time Provider Initiated Documentation: 01/05/22 10:47 . HPI Narrative: This 71-year-old female presents with report of fall on Thursday of this week. Mechanical fall, missed a step, landed on her chest. States that she is actually been doing well until she started coughing on . She denies any shortness of breath but has had fever, temp of 101 at home. She tested positive for COVID on an at home test on . States he is unable to fully flex his hand. Related Data Home Medications Medication Instructions Recorded Confirmed simvastatin 10 mg tablet 20 mg PO DAILY 10/15/12 01/05/22 hydrocodone 5 mg-acetaminophen 325 1 tab PO DAILY PRN #5 tabs 01/05/22 mg tablet nirmatrelvir 300 mg (150 mg See Rx Instructions PO .COMPLEX 01/05/22 x2)-ritonavir 100 mg tablet,dose #30 dose pk pack(EUA) (Paxlovid) Previous Rx's Medication Instructions Recorded hydrocodone 5 mg-acetaminophen 325 1 tab PO DAILY PRN #5 tabs 01/05/22 mg tablet nirmatrelvir 300 mg (150 mg See Rx Instructions PO .COMPLEX 01/05/22 x2)-ritonavir 100 mg tablet,dose #30 dose pk pack(EUA) (Paxlovid) Allergies Allergy/AdvReac Type Severity Reaction Status Date / Time No Known Drug Allergies Allergy Unverified 01/05/22 10:16 General Stated Complaint: GenMedical ERICK: 4 Review of Systems All systems reviewed & are unremarkable except as noted in HPI and below PFSH All Active Problems (Updated 01/05/22 @ 12:42 by RAUL Betancourt) Left-sided chest wall pain (Acute) COVID-19 (Acute) Chest wall contusion (Acute) Head injury (Acute) Adenomatous colon polyp (Acute) Pulmonary nodule (Acute) not amendable to Bx PET recommeneded. Medical History (Updated 01/05/22 @ 12:42 by RAUL Betancourt) Hx of hyperlipidemia Nausea Surgical History (Updated 02/28/21 @ 19:12 by Helga Meredith DO) History of carpal tunnel release Right side History of hysterectomy History of knee surgery bilateral Social History Smoking/Tobacco Use Status: Never Smoking risk assessment performed?: Yes Alcohol Intake: never Drug use: Never Substance use type: does not use Current gender identity: female Do you feel safe at home: Yes Do you feel safe in your relationship?: Yes Exam Const General: cooperative, comfortable and no acute distress HENMT Head: normal to inspection Eyes Pupils: PERRL Neck Neck: normal visual inspection Other: No midline tenderness Chest Other: Ecchymosis noted to left breast, approximately 2 inch x 2 inch region, no crepitus Resp Effort & Inspection: normal respiratory effort Auscultation: clear to auscultation bilaterally Cardio Rate: regular rate Rhythm: regular rhythm GI Inspection: normal to inspection Neuro General: patient alert and patient oriented x3 Other: GCS 15, strength and sensation intact distally, ambulatory with steady gait Course Vital Signs Vital signs: Vital Signs Temperature 36.7 C 01/05/22 10:12 Pulse 85 01/05/22 10:12 Respiratory Rate 18 01/05/22 10:12 Blood Pressure 96/68 L 01/05/22 10:12 Pulse Oximetry 96 01/05/22 10:12 Temperature 36.7 C 01/05/22 10:12 Temperature Source Skin 01/05/22 10:12 Pulse 85 01/05/22 10:12 Respiratory Rate 18 01/05/22 10:12 Respiratory Effort 01/05/22 10:17 Blood Pressure 96/68 L 01/05/22 10:12 Blood Pressure Position Sitting 01/05/22 10:12 Pulse Oximetry 96 01/05/22 10:12 Oxygen Delivery Method Room Air 01/05/22 10:12 Oxygen Flow Rate 0 01/05/22 10:12 Pain Level 9 01/05/22 10:12
[2022-01-05 12:05] LABS: ALT 52 U/L (14-59); AST 33 U/L (15-37); Albumin 3.8 g/dL (3.4-5.0); Alkaline Phosphatase 76 U/L (46-116); BUN 14 mg/dL (7-18); Bilirubin, Total 0.4 mg/dL (0.2-1.0); CREATININE 0.9 mg/dL (0.55-1.02); Calcium 9.1 mg/dL (8.5-10.1); Chloride 102 mmol/L (98-107); Glucose 108 mg/dL (74-106); Potassium 3.9 mmol/L (3.5-5.1); Sodium 137 mmol/L (136-145); Total Protein 8.3 g/dL (6.4-8.2)
--- NOTE | 2022-01-05 12:27 | DI.RAD_ITS ---
Exam(s) XR RIBS LT W PA LAT CHEST EXAM: XR RIBS LT W PA LAT CHEST CLINICAL HISTORY: left chest wall pain TECHNIQUE: COMPARISON: No exams were available for comparison FINDINGS: PA and lateral views of the chest and 4 additional views of the left ribs were obtained. The heart i s not enlarged. Lungs appear predominantly clear with question of slight bilateral basilar scarring. No pleural effusion seen. No pneumothorax. No for rib fracture or other focal rib abnormality. IMPRESSION: No evidence of acute process. RADIATION DOSE DELIVERED: Total DLP
--- NOTE | 2022-01-05 12:46 | DI.VRAD_ITS ---
PROCEDURE INFORMATION: Exam: XR Left Ribs Exam date and time: 01/05/2022 12:22 PM Age: 71 years old Clinical indication: Chest wall pain and left-sided TECHNIQUE: Imaging protocol: Radiologic exam of the Left ribs. Views: 2 views. COMPARISON: CT CHEST PE CTA 05/11/2020 16:01 FINDINGS: Bones/joints: No displaced rib fractures identified. Lungs: Reticular markings at the left base consistent with scar versus atelectasis. Organs: Cholecystectomy. Soft tissues: BB placed over the anterior lower left lung field presumably the area of chest pain. IMPRESSION: 1. No displaced rib fractures identified. 2. Reticular markings left base consistent with atelectasis or scar. PROCEDURE INFORMATION: Exam: XR Chest Exam date and time: 01/05/2022 12:22 PM Age: 71 years old Clinical indication: Chest wall pain and left-sided TECHNIQUE: Imaging protocol: Radiologic exam of the chest. Views: 2 views. COMPARISON: CT CHEST PE CTA 05/11/2020 16:01 FINDINGS: Lungs: No focal consolidation. Previous mentioned 1.0 cm lung nodule at the right base is not appreciated on the plain film. No focal consolidation. Reticular markings at the lung bases consistent with atelectasis versus scar. No focal consolidation. Pleural spaces: Unremarkable. No pleural effusion. No pneumothorax. Heart/Mediastinum: Mild cardiomegaly. Bones/joints: Unremarkable for patient's age. IMPRESSION: No acute cardiopulmonary findings. Dictated and Authenticated by: Jacy Ching MD. Ordering:ZENOBIA Pacheco MD
== END 2022-01-05 14:12 | disposition home or self-care (01) ==
PROVIDERS: Emergency Provider Physician Assistant; PCP Nurse Practitioner Primary Care
DX: U07.1 COVID-19 (principal); S20.02XA Contusion of left breast, initial encounter; W19.XXXA Unspecified fall, initial encounter
CPT/HCPCS: 36415; 80053; 99284; 71046; 71100

== ENCOUNTER → 2022-03-04 02:08 | Outpatient (CLI) | payer OTHER, SELFPAY ==
--- NOTE | 2022-03-04 12:25 | DI.MAMMO_ITS ---
Exam(s) MAMMO SCREENING EXAM: MAMMO SCREENING CLINICAL HISTORY: SCREENING, [id number] TECHNIQUE: Bilateral full field digital CC and MLO mammographic images were obtained with 3D tomosyn thesis and utilizing computer aided detection (CAD). COMPARISON: Available for comparison. FINDINGS: Masses/Architectural Distortion: None seen. Microcalcifications: No suspicious pleomorphic-type are seen. Skin Thickening/Nipple Retraction: None. IMPRESSION: 1. No significant interval change with no specific features of malignancy noted. 2. Unless there is more urgent need, screening mammography is recommended, as per [employer] guidelines. BI-RADS Category 1 - Negative Breast Density - Category B - Scattered areas of fibroglandular density Breast density category C or D implies that the patient has dense breast tissue. Dense breast tissue is very common and is not abnormal but dense breast tissue can make it harder to find cancer on a ma mmogram. Also, dense breast tissue may increase their breast cancer risk. This information about the result of the mammogram report was provided to the patient to raise their awareness. Use this report when you speak with the patient about their risks for breast cancer, which includes their family hist ory. At that time, you may recommend for more screening tests (Ultrasound or MRI) as they might be us eful based on their risk. A negative radiographic report should not delay biopsy if a dominant or clinically suspicious mass is present. Up to ten percent of cancers are not identified on mammography. A negative report may reinforce clinical impression. Adenosis and dense breasts may obscure an underlying neoplasm. False positive reports average 6 to 10%. Patient will receive a letter notifying them of these results.
== END ==
PROVIDERS: PCP Nurse Practitioner Primary Care; Visit Provider Internal Medicine
DX: Z12.31 Encounter for screening mammogram for malignant neoplasm of breast (principal)
CPT/HCPCS: 77063; 77067

== ENCOUNTER → 2023-03-05 01:21 | Outpatient (CLI) | payer OTHER, SELFPAY ==
--- NOTE | 2023-03-05 | DI.MAMMO_ITS ---
Exam(s) MAMMO SCREENING EXAM: MAMMO SCREENING CLINICAL HISTORY: [id number], Screening Z12.31 TECHNIQUE: Mammograms were interpreted according to the usual protocol including computer analysis w [employer] CAD system, tomosynthesis and C-view imaging. COMPARISON: 2013 through 2021 FINDINGS: The breasts are composed of mainly fatty density , Breast Density category A. No suspicious masses or suspicious microcalcifications are seen. No skin thickening or abnormal axillary lymph nodes are seen. There has been no significant change from prior exams. IMPRESSION: BI-RADS Category 1, Negative mammogram Yearly screening mammography is recommended. Breast Density - Category A, fatty density. A negative radiographic report should not delay biopsy if a dominant or clinically suspicious mass is present. Up to ten percent of cancers are not identified on mammography. A negative report may reinforce clinical impression. Adenosis and dense breasts may obscure an underlying neoplasm. False positive reports average 6 to 10%. Patient will receive a letter notifying them of these results.
== END ==
PROVIDERS: PCP Nurse Practitioner Primary Care; Visit Provider Physician Assistant
DX: Z12.31 Encounter for screening mammogram for malignant neoplasm of breast (principal); R92.313 Mammographic fatty tissue density, bilateral breasts
CPT/HCPCS: 77063; 77067

== ENCOUNTER 2024-03-14 01:09 | Outpatient (CLI) | payer OTHER, SELFPAY ==
--- NOTE | 2024-03-14 | DI.MAMMO_ITS ---
Exam(s) MAMMO SCREENING EXAM: MAMMO SCREENING CLINICAL HISTORY: Screening, Z12.31, [id number] TECHNIQUE: Bilateral full field digital CC and MLO mammographic images were obtained with 3D tomosyn thesis and utilizing computer aided detection (CAD). COMPARISON: Available for comparison. FINDINGS: Masses/Architectural Distortion: None seen. Microcalcifications: No suspicious pleomorphic-type are seen. Skin Thickening/Nipple Retraction: None. IMPRESSION: 1. No significant interval change with no specific features of malignancy noted. 2. Unless there is more urgent need, screening mammography is recommended, as per [employer] guidelines. BI-RADS Category 1 - Negative Breast Density - Category A - Almost entirely fatty Breast density category C or D implies that the patient has dense breast tissue. Dense breast tissue is very common and is not abnormal but dense breast tissue can make it harder to find cancer on a ma mmogram. Also, dense breast tissue may increase their breast cancer risk. This information about the result of the mammogram report was provided to the patient to raise their awareness. Use this report when you speak with the patient about their risks for breast cancer, which includes their family hist ory. At that time, you may recommend for more screening tests (Ultrasound or MRI) as they might be us eful based on their risk. A negative radiographic report should not delay biopsy if a dominant or clinically suspicious mass is present. Up to ten percent of cancers are not identified on mammography. A negative report may reinforce clinical impression. Adenosis and dense breasts may obscure an underlying neoplasm. False positive reports average 6 to 10%. Patient will receive a letter notifying them of these results.
== END 2024-03-14 01:29 ==
PROVIDERS: PCP Nurse Practitioner Primary Care; Visit Provider Physician Assistant
DX: Z12.31 Encounter for screening mammogram for malignant neoplasm of breast (principal); R92.313 Mammographic fatty tissue density, bilateral breasts
CPT/HCPCS: 77063; 77067